=== PATIENT | male | born 1965 | race Native Hawaiian/Other Pacific Islander ===

== ENCOUNTER 2022-05-16 07:59 | Emergency (ER) | payer SELFPAY ==
[2022-05-16] MEDS ORDERED: MORPHINE 4 MG/1 ML INJ IV ONE (08:06)
[2022-05-16] MEDS ORDERED: ONDANSETRON 4 MG/2 ML INJ IV ONE (08:06)
--- NOTE | 2022-05-16 08:09 | Emergency Department Report ---
HPI - General Chief Complaint: Extremity Injury, Upper Time Seen by Provider: 05/16/22 08:02 - HPI HPI: 56-year-old male presents to the emergency department with an injury to his left index finger. He is right-hand dominant. He was trying to separate a trailer from a hitch when his finger got caught and smashed. He presents with a partial amputation of the distal portion of the left index finger. Unknown last tetanus vaccination. He denies any past medical history. He is a tobacco smoker. He has not taken anything for his symptoms prior to presentation today. ED Past Medical Hx - Medications Home Medications: Home Medications Medication Instructions Recorded Confirmed Last Taken Type HYDROcodone/APAP 5-325 [Black Diamond 1 each PO Q6HR PRN #12 tablet 05/16/22 Unknown Rx 5/325] cephALEXin [Keflex] 500 mg PO Q6HR #28 capsule 05/16/22 Unknown Rx ED Review of Systems ROS: Stated complaint: LEFT HAND FINGER INJURY Other details as noted in HPI Comment: All other systems reviewed and negative Constitutional: denies: chills, fever Musculoskeletal: arthralgia (Left index finger injury). denies: back pain Skin: other (Left index finger laceration/amputation). denies: rash Neurological: denies: headache, weakness Physical Exam - Physical Exam Physical Exam: GENERAL: The patient is well-developed well-nourished. HENT: Normocephalic. Atraumatic. Patient has moist mucous membranes. EYES: Extraocular motions are intact. NECK: Supple. Trachea is midline. CHEST/LUNGS: Clear to auscultation. There is no respiratory distress noted. HEART/CARDIOVASCULAR: Regular. There is no tachycardia. There is no murmur. ABDOMEN: Abdomen is soft, nontender. There is no abdominal distention. SKIN: Skin is warm and dry. There is a laceration of the distal left index finger that is essentially almost an amputation with a small amount of skin and or connective tissue remaining to the palmar side of the finger. The laceration starts just below the nailbed and goes down towards the palmar DIP joint. NEURO: The patient is awake, alert, and oriented. The patient is cooperative. Normal speech. MUSCULOSKELETAL: +2 for 4 radial pulse to the affected left upper extremity. There is a partial amputation of the distal left index finger about the level of the DIP joint with dorsal displacement. ED Course - Consultations Consultation #1: 05/16/22 08:51 I spoke to the orthopedist on-call, Dr. Mohr. I sent him pictures of the x- ray and of the soft tissue injury as well. He says that the finger can be approximated which will help with salvaging the tip of the finger. It can then be placed in a splint and the patient can follow-up in the office outpatient. - Laceration /Wound Repair Left Finger Wound Location: upper extremity (Left index finger) Wound Length (cm): 5 Wound's Depth, Shape: irregular (Almost near amputation) Wound Explored: no foreign body removed Irrigated w/ Saline (ccs): 150 Anesthesia: 1% Lidocaine Volume Anesthetic (ccs): 10 (Digital block) Wound Repaired With: sutures Suture Size/Type: 5:0, proline Number of Sutures: 16 Sterile Dressing Applied?: Yes - Nerve Block Consent Obtained: verbal consent Time Out Performed: Yes Local Anesthetic Used: Lidocaine 1% Amount of anesthesia used: 12 Side: left Nerve Blocks: digital (Index finger) Procedure Successful: Yes Complications: none Patient Tolerated Procedure: well ED Medical Decision Making - Radiology Data Radiology results: report reviewed Procedure(s): XR finger(s) 2+V LT Accession Number(s): [id number] cc: YOLIS KEVIN DO Fluoro Time In Minutes: Left shoulder 3 views INDICATION: Index finger injury IMPRESSION: There is a fracture or dislocation within the distal phalanx of the index finger. The distal phalanx is displaced anteriorly in relation to the middle phalanx. There is a fracture deformity within the distal aspect of the middle phalanx. A soft tissue injury with near amputation suggested - Medical Decision Making The patient got his left index finger stuck in a trailer hitch causing almost complete amputation of the distal portion of the finger. X-ray shows there is a fracture through the distal phalanx, making this an open fracture. Pictures of the x-ray and of the soft tissue injury were sent to the orthopedist on-call who said that the laceration should be repaired/approximated to the best of my ability and then he can follow-up outpatient in the office. Patient was given IV antibiotics, IV analgesia. The wound was soaked in Betadine and water. The laceration, near amputation, was sutured and approximated as per the procedure section. After this it was placed in a finger splint and with sterile dressing. The patient will be discharged home to follow-up with Dr. Mohr and has been given a prescription for antibiotics and pain medication. We discussed signs/symptoms of infection for which the patient should return immediately. Vital signs reassuring throughout his ED course. Critical Care Time: No Critical care attestation.: If time is entered above; I have spent that time in minutes in the direct care of this critically ill patient, excluding procedure time. ED Disposition Clinical Impression: Near amputation of finger of left hand Open fracture of phalanx of index finger Qualifiers: Encounter type: initial encounter Phalanx: distal Fracture alignment: displaced Laterality: left Qualified Code(s): S62.631B - Displaced fracture of distal phalanx of left index finger, initial encounter for open fracture Disposition: HOME / SELF CARE / HOMELESS Is pt being admited?: No Condition: Stable Instructions: Finger Fracture, Adult, Laceration Care, Adult, [id number], Sutured Wound Care, [id number] Additional Instructions: I have given you a referral for a local orthopedist, Dr. Mohr, who is the physician that I spoke with during your emergency department visit. Please call for a follow-up appointment regarding your finger fracture and laceration. You have been prescribed a medication that is sedating and therefore should not be taken prior to driving, working, and responsible for children and in no way should be mixed with alcohol of any quantity. Return to the emergency department with any worsening of your symptoms, signs/symptoms of infection such as increased pain, increased swelling, surrounding redness, development of fever, or discharge of pus. Prescriptions: cephALEXin [Keflex] 500 mg PO Q6HR #28 capsule HYDROcodone/APAP 5-325 [Black Diamond 5/325] 1 each PO Q6HR PRN #12 tablet PRN Reason: Pain Referrals: FIONA MOHR MD [Staff Physician] - 2-3 Days PRIMARY CAREMD [Primary Care Provider] - 2-3 Days Forms: Work/School Release Form(ED) Time of Disposition: 10:50
--- NOTE | 2022-05-16 08:52 | XRay Report ---
Left shoulder 3 views INDICATION: Index finger injury IMPRESSION: There is a fracture or dislocation within the distal phalanx of the index finger. The dis pablo phalanx is displaced anteriorly in relation to the middle phalanx. There is a fracture deformity within the distal aspect of the middle phalanx. A soft tissue injury with near amputation suggested Signer Name: Jackson Uriostegui MD Signed: 05/16/2022 8:48 AM Workstation Name: [id number]
[2022-05-16] MEDS ORDERED: LIDOCAINE (1%) 10 MG/1 ML VIAL 20 ML MDV INFILTRATI ONE (08:54)
[2022-05-16] MEDS ORDERED: TETANUS,DIPH,PERTUSS(ACELL) VACCINE 0.5 ML SYRINGE IM ONE (09:00)
[2022-05-16] MEDS ORDERED: ONDANSETRON 4 MG/2 ML INJ IV SCH (09:00)
[2022-05-16 10:58] VITALS: BP 124/70
== END 2022-05-16 11:25 | disposition home or self-care (01) ==
LOC: ED 07:59
DX: S62.601A Fracture of unspecified phalanx of left index finger, initial encounter for closed fracture (principal); X58.XXXA Exposure to other specified factors, initial encounter; Y93.89 Activity, other specified; Y92.89 Other specified places as the place of occurrence of the external cause; Y99.8 Other external cause status
CPT/HCPCS: 12002; 73140; 90471; 90715; 96365; 96375; 99283; J0690; J2270; J2405